=== PATIENT | male | born 1995 | race Caucasian/White ===

== ENCOUNTER 2018-11-02 20:50 | Emergency (ER) | payer SELFPAY ==
[~2018-11-02] VITALS: Ht 182.9 cm; Wt 92.0 kg
[2018-11-02 21:04] VITALS: Ht 182.9 cm; Wt 92.0 kg
[2018-11-02] MEDS ORDERED: DIPHTH/TET/ACEL PERTUSS (ADULT) 0.5 ML VIAL IM* ONE (22:00)
[2018-11-02] MEDS ORDERED: ACETAMINOPHEN 325 MG TAB PO ONE (22:00)
--- NOTE | 2018-11-02 22:32 | ERD ---
ER Documentation Chief Complaint Chief Complaint FALL AFTER SMOKING POT, LAC ON BACK OF HEAD HPI This is a 23-year-old healthy male presents to the ED with a occipital scalp laceration after fainting earlier today. Patient states he donated plasma and was walking to his car when he suddenly had tunnel vision and fainted hitting the back of his head against the car. Patient denies any precipitating chest pain. Patient states he did not eat prior to donating plasma. He also admits to smoking marijuana earlier today. He is complaining of occipital headache. Denies any nausea, vomiting, changes in vision, changes in mental status. No other injuries. Tetanus is not up-to-date. ROS All systems reviewed and are negative except as per history of present illness. PMhx/Soc Medical and Surgical Hx: pt denies Medical Hx, pt denies Surgical Hx Hx Alcohol Use: No Hx Substance Use: Yes (MJ) Hx Tobacco Use: No Smoking Status: Never smoker Physical Exam Vitals Vital Signs Date Temp Pulse Resp B/P (MAP) Pulse Ox O2 O2 Flow FiO2 Time Delivery Rate 11/02/18 99.0 58 16 121/74 100 21:04 (90) Physical Exam Const: No acute distress Head: + 2 cm gaping laceration to right occipital scalp. Eyes: Normal Conjunctiva. EOMI. PERRL. no raccoon eyes. ENT: Normal External Ears, Nose and Mouth. No simmons signs. Neck: Full range of motion. No meningismus. Resp: Clear to auscultation bilaterally Cardio: Regular rate and rhythm, no murmurs Ext: No cyanosis, or edema Neuro: M/S: Alert and oriented Face: EOMI, face and pharynx with normal sensation and function Motor: Normal strength throughout Sensation: Normal sensation throughout Speech: Normal Cerebel: Normal coordination Normal gait Psych: Normal Mood and Affect Results 24 hrs Current Medications Medications Dose Sig/Ca Start Time Status Last (Trade) Ordered Route PRN Stop Time Admin Dose Reason Admin Diphtheria/ 0.5 ml ONCE ONCE 11/02/18 DC 11/02/18 Tetanus/Acell IM* 22:00 22:03 Pertussis 11/02/18 22:01 (Adacel) 650 mg ONCE ONCE 11/02/18 DC 11/02/18 Acetaminophen PO 22:00 22:03 (Tylenol 11/02/18 22:01 Tab) Procedures/MDM PROCEDURES: Laceration Repair by me: Anesthesia: None Location: Occipital scalp Tendon/Joint/Nerves: No injury Foreign body: None detected after copious irrigation and exploration Technique: staple x4 Complexity: No subcutaneous sutures/mucosal repair/edge excision Post Closure Length: 2 cm ED COURSE: The patient was given Tylenol and tetanus update. The medication was well tolerated and the patient had market improvement in symptoms. The patient remained stable throughout ED course. MEDICAL DECISION MAKIN-year-old male presents with a scalp laceration status post vasovagal episode after donating platelets today. Patient is neurologically intact. I have low suspicion for any intracranial bleeding or skull fracture. He is acting normally on my exam therefore neuroimaging was deferred. Laceration was repaired with 4 juani as above. Patient's bleeding was easily controlled in the department and there is no indication of anemia. No evidence of compartment syndrome, neurological injury, or foreign body. Patient is appropriate for outpatient follow up. Recommended wound recheck in 48 hours and staple removal in 7 days. Strict return precautions were discussed. PRESCRIPTIONS: None SPECIALIST FOLLOW UP RECOMMENDED: None Patient has been advised to follow up with primary care in 1-2 days. Smoking Cessation Therapy: Pt. was lectured for greater than 3 minutes on the health risks of continued smoking and the benefits of cessation. Departure Diagnosis: Primary Impression: Head injury Encounter type: initial encounter Qualified Codes: S09.90XA - Unspecified injury of head, initial encounter Additional Impression: Scalp laceration Encounter type: initial encounter Qualified Codes: S01.01XA - Laceration without foreign body of scalp, initial encounter Condition: Stable Patient Instructions: HEAD INJURY, No Wake-Up (Adult), Laceration, Scalp Referrals: [facility] YOU HAVE RECEIVED A MEDICAL SCREENING EXAM AND THE RESULTS INDICATE THAT YOU DO NOT HAVE A CONDITION THAT REQUIRES URGENT TREATMENT IN THE EMERGENCY DEPARTMENT. FURTHER EVALUATION AND TREATMENT OF YOUR CONDITION CAN WAIT UNTIL YOU ARE SEEN IN YOUR DOCTORS OFFICE WITHIN THE NEXT 1-2 DAYS. IT IS YOUR RESPONSIBILITY TO MAKE AN APPOINTMENT FOR FOLOW-UP CARE. IF YOU HAVE A PRIMARY DOCTOR --you should call your primary doctor and schedule an appointment IF YOU DO NOT HAVE A PRIMARY DOCTOR YOU CAN CALL OUR PHYSICIAN REFERRAL HOTLINE AT IF YOU CAN NOT AFFORD TO SEE A PHYSICIAN YOU CAN CHOSE FROM THE FOLLOWING [facility] [address] [facility] [place] [facility] [address] [facility] [address] [facility] [address] [facility] [address] [facility]. [facility] [address] [facility]. [facility] YOU HAVE RECEIVED A MEDICAL SCREENING EXAM AND THE RESULTS INDICATE THAT YOU DO NOT HAVE A CONDITION THAT REQUIRES URGENT TREATMENT IN THE EMERGENCY DEPARTMENT. FURTHER EVALUATION AND TREATMENT OF YOUR CONDITION CAN WAIT UNTIL YOU ARE SEEN IN YOUR DOCTORS OFFICE WITHIN THE NEXT 1-2 DAYS. IT IS YOUR RESPONSIBILITY TO MAKE AN APPOINTMENT FOR FOLOW-UP CARE. IF YOU HAVE A PRIMARY DOCTOR --you should call your primary doctor and schedule and appointment IF YOU DO NOT HAVE A PRIMARY DOCTOR YOU CAN CALL OUR PHYSICIAN REFERRAL HOTLINE AT . IF YOU CAN NOT AFFORD TO SEE A PHYSICIAN YOU CAN CHOSE FROM THE FOLLOWING [facility] INSTITUTIONS: [facility] [address] [place] [address] [facility] [address] [place] [address] [facility] + [facility] [address] [place] [address] [facility] URGENT CARE/SPECIALTIES Additional Instructions: Juani can removed in 7 days. Monitor for any worsening headache, nausea, vomiting, changes in vision or any other complaints. Return here for any new or worsening symptoms. ABELARDO MYLES PA-C Nov 02, 2018 22:32
[2018-11-02 22:45] VITALS: BP 115/68; PULSE 68; RESP 16
== END 2018-11-02 22:46 | disposition home or self-care (01) ==
LOC: FTE 20:50
DX: S01.01XA Laceration without foreign body of scalp, initial encounter (principal); W01.198A Fall on same level from slipping, tripping and stumbling with subsequent striking against other object, initial encounter; Y92.9 Unspecified place or not applicable; Z23 Encounter for immunization
CPT/HCPCS: 90471; 90715

== ENCOUNTER 2018-11-10 17:14 | Emergency (ER) | payer OTHER ==
[~2018-11-10] VITALS: Ht 182.9 cm; Wt 95.2 kg
[2018-11-10 17:16] VITALS: BP 139/76; PULSE 90; RESP 18; Ht 182.9 cm; Wt 95.2 kg
--- NOTE | 2018-11-10 18:30 | ERD ---
ER Documentation Chief Complaint Chief Complaint JUANI REMOVAL, BACK OF HEAD HPI This is a 23-year-old male presents ED for staple removal from posterior scalp. Patient denies any fevers, chills, redness, swelling, tenderness palpation, purulent drainage and all other symptoms ROS All systems reviewed and are negative except as per history of present illness. PMhx/Soc Hx Alcohol Use: No Hx Substance Use: Yes (MJ) Hx Tobacco Use: No Physical Exam Vitals Vital Signs Date Temp Pulse Resp B/P (MAP) Pulse Ox O2 O2 Flow FiO2 Time Delivery Rate 11/10/18 98.2 90 18 139/76 99 17:16 (97) Physical Exam Const: No acute distress Head: Atraumatic Eyes: Normal Conjunctiva ENT: Normal External Ears, Nose and Mouth. Skin: Stamping Ground in place along posterior scalp with no redness, swelling, puru lent drainage or warmth or tenderness to palpation, Ext: No cyanosis, or edema Neur: Awake and alert Psych: Normal Mood and Affect Procedures/MDM ER COURSE: The patient was stable throughout ED course. I kept the patient and/or family informed of laboratory and diagnostic imaging results throughout the emergency room course. The patient was promptly evaluated and a treatment plan was devised based on H&P and other data. This plan was discussed with the patient who agreed and had no further questions or concerns prior to discharge. MEDICAL DECISION MAKIN-year-old male presents ED for staple removal. Juani were removed without complication. The wound is clean, dry and intact with no evidence of infection. Patient has good wound closure and good wound approximation. There is no surrounding erythema, warmth, tenderness or lymphatic streaking. Low suspicion for deep space infection, compartment syndrome, cellulitis, neurovascular injury, tendon injury. Patient's vitals are stable and she can be managed with close outpatient follow-up. Advised patient follow-up with primary care in the next 48 hours. Advised to return to ED with any worsening symptoms. DISPOSITION PLAN: We discussed follow up with the patient's primary care doctor within 24 to 48 hours. Patient counseled regarding my diagnostic impression and care plan. Prior to discharge all questions answered. Pt agrees with treatment plan and understands strict return precautions. Precautionary instructions provided including instructions to return to the ER if not improving or for any worsening or changing symptoms or concerns. ExitCare instructions provided. Prior to discharge, patients vital signs have been reviewed SPECIALIST FOLLOW UP RECOMMENDED: None Patient has been advised to follow up with primary care in 1-2 days. Disclaimer: Inadvertent spelling and grammatical errors are likely due to EHR/dictation software use and do not reflect on the overall quality of patient care. Also, please note that the electronic time recorded on this note does not necessarily reflect the actual time of the patient encounter. Departure Diagnosis: Primary Impression: Encounter for removal of juani Condition: Stable Patient Instructions: Staple Removal, No Complication Referrals: [facility] YOU HAVE RECEIVED A MEDICAL SCREENING EXAM AND THE RESULTS INDICATE THAT YOU DO NOT HAVE A CONDITION THAT REQUIRES URGENT TREATMENT IN THE EMERGENCY DEPARTMENT. FURTHER EVALUATION AND TREATMENT OF YOUR CONDITION CAN WAIT UNTIL YOU ARE SEEN IN YOUR DOCTORS OFFICE WITHIN THE NEXT 1-2 DAYS. IT IS YOUR RESPONSIBILITY TO MAKE AN APPOINTMENT FOR FOLOW-UP CARE. IF YOU HAVE A PRIMARY DOCTOR --you should call your primary doctor and schedule an appointment IF YOU DO NOT HAVE A PRIMARY DOCTOR YOU CAN CALL OUR PHYSICIAN REFERRAL HOTLINE AT IF YOU CAN NOT AFFORD TO SEE A PHYSICIAN YOU CAN CHOSE FROM THE FOLLOWING [facility] [address] [facility]. [facility] [address] [facility] [address] [facility] [facility] [address] [facility]. [facility] [address] [facility]. [facility]. [address] Additional Instructions: Patient advised to return to the ED immediately for new or worsening symptoms. Patient advised to follow up with primary care provider in the next 24-48 hours. Patient verbalized understanding and agrees with treatment plan and course of action. If patient has no primary care they may follow up with one of the formerly [facility] clinics listed on the following page or one of the options listed below [facility] [address] [place] [id number] or [facility] [address] [place] [address] [address] [place] [address] MONAE PIERCE PA-C Nov 10, 2018 18:30
== END 2018-11-10 19:31 | disposition home or self-care (01) ==
LOC: FTE 17:14
DX: Z48.02 Encounter for removal of sutures (principal)
CPT/HCPCS: 99281